=== PATIENT | male | born 1985 | race American Indian/Alaskan Native ===

== ENCOUNTER 2016-12-01 18:06 | Emergency (ER) | payer SELFPAY ==
[2016-12-01 18:33] VITALS: RESP 18
[2016-12-01 18:47] VITALS: BMI 15.6
--- NOTE | 2016-12-01 18:54 | ED PDOC ---
Arrival/HPI - General Chief Complaint: Alcohol Ingestion Time Seen by Provider: 12/01/16 18:20 Historian: Patient - History of Present Illness Narrative History of Present Illness (Text): 12/01/16 18:50 A 31 year old male was brought into the emergency department by EMS for alcohol intoxication. Patient admits to drinking alcohol today. Patient has no physical complaints and states he just wants something to eat. Patient denies any trauma , fever, nausea, vomiting, diarrhea, abdominal pain, chest pain, shortness of breath, suicidal ideation, homicidal ideation or any other complaints. Time/Duration: Prior to Arrival Symptom Course: Unchanged Quality: Other Context: Other Past Medical History - Provider Review Nursing Documentation Reviewed: Yes - Infectious Disease Hx of Infectious Diseases: None - Cardiac Hx Cardiac Disorders: No Hx Hypertension: No - Pulmonary Hx Respiratory Disorders: No Hx Tuberculosis: No - Neurological HX Cerebrovascular Accident: No Hx Seizures: No - HEENT Hx HEENT Disorder: No - Renal Hx Renal Disorder: No - Endocrine/Metabolic Hx Endocrine Disorders: No - Hematological/Oncological Hx Blood Disorders: No Hx Cancer: No - Integumentary Hx Dermatological Disorder: No - Musculoskeletal/Rheumatological Hx Musculoskeletal Disorders: No - Gastrointestinal Hx Gastrointestinal Disorders: No - Genitourinary/Gynecological Hx Genitourinary Disorders: No Hx Sexually Transmitted Diseases: No - Psychiatric Hx Psychophysiologic Disorder: No Hx Anxiety: No Hx Substance Use: No - Anesthesia Hx Anesthesia: No Hx Anesthesia Reactions: No Hx Malignant Hyperthermia: No Family/Social History - Physician Review Nursing Documentation Reviewed: Yes Family/Social History: No Known Family HX Smoking Status: Heavy Smoker > 10 Cigarettes Daily Hx Alcohol Use: Yes Frequency of alcohol use: Daily Hx Substance Use: No Allergies/Home Meds Allergies/Adverse Reactions: Allergies No Known Allergies Allergy (Verified 12/01/16 18:15) Home Medications: Home Meds Medication Instructions Recorded Confirmed No Known Home Med 11/15/16 12/01/16 Review of Systems - Review of Systems Systems not reviewed;Unavailable: Intoxicated Physical Exam - Physical Exam Narrative Physical Exam (Text): Constitutional: No acute distress. Head: Normocephalic. Atraumatic. Eyes: PERRL. ENT: Moist mucous membranes. Neck: Supple. Cardiovascular: Regular rate. Chest: No tenderness. Respiratory: Clear to auscultation bilaterally. No airway compromise, breathing without difficulty. GI: Soft. Nontender. Nondistended. Back: No CVA tenderness. Musculoskeletal: No tenderness or swelling of extremities. Skin: No rash. Neurologic: Alert, no focal deficit. Steady gait. No suicidal/homicidal ideation. Vital Signs Reviewed: Yes Vital Signs Temp Pulse Resp BP Pulse Ox 12/01/16 18:32 97.9 F 89 18 133/75 100 Temperature: Afebrile Blood Pressure: Normal Pulse: Regular Respiratory Rate: Normal Appearance: Positive for: Well-Appearing, Non-Toxic, Comfortable Pain Distress: None Mental Status: No: Confused, Agitated, Lethargic Medical Decision Making ED Course and Treatment: 12/01/16 18:50 Impression: A 31 year old male brought in for alcohol intoxication. Differential Diagnosis included but are not limited to: Alcohol intoxication Progress Notes: Patient with stable gait and wishes to go home. - Scribe Statement The provider has reviewed the documentation as recorded by the Radhaibjm Lopez Provider Scribe Attestation: All medical record entries made by the Scribe were at my direction and personally dictated by me. I have reviewed the chart and agree that the record accurately reflects my personal performance of the history, physical exam, medical decision making, and the department course for this patient. I have also personally directed, reviewed, and agree with the discharge instructions and disposition. Disposition/Present on Arrival - Present on Arrival Any Indicators Present on Arrival: No History of DVT/PE: No History of Uncontrolled Diabetes: No Urinary Catheter: No History of Decub. Ulcer: No History Surgical Site Infection Following: None - Disposition Have Diagnosis and Disposition been Completed?: Yes Diagnosis: Alcohol intoxication Disposition: HOME/ ROUTINE Disposition Time: 19:04 Patient Plan: Discharge Condition: STABLE Discharge Instructions (ExitCare): Alcohol Intoxication (ED)
--- NOTE | 2016-12-01 23:21 | ED PDOC ---
Physical Exam Vital Signs Reviewed: Yes Vital Signs Temp Pulse Resp BP Pulse Ox 12/01/16 21:29 106 H 18 149/83 99 12/01/16 19:25 106 H 18 149/87 99 12/01/16 18:32 97.9 F 89 18 133/75 100 Temperature: Afebrile Blood Pressure: Normal Pulse: Regular Respiratory Rate: Normal Appearance: Positive for: Well-Appearing, Non-Toxic, Comfortable Pain Distress: None Mental Status: Positive for: Alert and Oriented X 3 Medical Decision Making ED Course and Treatment: 12/01/16 23:00 Pt brought in by Franci THAYER for alcohol intoxication. Disposition/Present on Arrival - Present on Arrival Any Indicators Present on Arrival: No History of DVT/PE: No History of Uncontrolled Diabetes: No Urinary Catheter: No History of Decub. Ulcer: No History Surgical Site Infection Following: None - Disposition Diagnosis: Alcohol intoxication Disposition: HOME/ ROUTINE Patient Problems: Current Active Problems Problem Status Diagnosed Alcohol intoxication Acute Condition: STABLE Discharge Instructions (ExitCare): Alcohol Intoxication (ED) Referrals: Kayce Ordaz, [Primary Care Provider] - Follow up with primary
[2016-12-02 04:19] VITALS: PULSE 97
[2016-12-02 06:31] VITALS: BP 125/76; TEMP 98.8; O2SAT 99
== END 2016-12-02 07:00 | disposition home or self-care (01) ==
LOC: ED 18:06
DX: F10.129 Alcohol abuse with intoxication, unspecified (principal); Y90.9 Presence of alcohol in blood, level not specified

== ENCOUNTER 2016-12-08 23:11 | Emergency (ER) | payer SELFPAY ==
[2016-12-08 23:45] VITALS: BP 140/82; PULSE 88; RESP 20; TEMP 98; O2SAT 97; BMI 25.0
--- NOTE | 2016-12-09 00:27 | ED PDOC ---
Arrival/HPI - General Chief Complaint: Medical Clearance Time Seen by Provider: 12/09/16 00:24 Historian: Patient, EMS - History of Present Illness Narrative History of Present Illness (Text): 12/09/16 00:25 31 y/o male, no significant pmh, psychiatric history including alcohol abuse, nkda, biba for Past Medical History - Infectious Disease Hx of Infectious Diseases: None - Cardiac Hx Cardiac Disorders: No Hx Hypertension: No - Pulmonary Hx Respiratory Disorders: No Hx Tuberculosis: No - Neurological HX Cerebrovascular Accident: No Hx Seizures: No - HEENT Hx HEENT Disorder: No - Renal Hx Renal Disorder: No - Endocrine/Metabolic Hx Endocrine Disorders: No - Hematological/Oncological Hx Blood Disorders: No Hx Cancer: No - Integumentary Hx Dermatological Disorder: No - Musculoskeletal/Rheumatological Hx Musculoskeletal Disorders: No - Gastrointestinal Hx Gastrointestinal Disorders: No - Genitourinary/Gynecological Hx Genitourinary Disorders: No Hx Sexually Transmitted Diseases: No - Psychiatric Hx Psychophysiologic Disorder: No Hx Anxiety: No Hx Substance Use: No - Anesthesia Hx Anesthesia: No Hx Anesthesia Reactions: No Hx Malignant Hyperthermia: No Family/Social History Smoking Status: Heavy Smoker > 10 Cigarettes Daily Hx Alcohol Use: Yes Frequency of alcohol use: Daily Hx Substance Use: No Allergies/Home Meds Allergies/Adverse Reactions: Allergies No Known Allergies Allergy (Verified 12/08/16 23:44) Home Medications: Home Meds Medication Instructions Recorded Confirmed No Known Home Med 11/15/16 12/01/16 Physical Exam Vital Signs Temp Pulse Resp BP Pulse Ox 12/08/16 23:44 98.0 F 88 20 140/82 97 Medical Decision Making ED Course and Treatment: 12/09/16 00:27 -FS -Observe until sober and reassess ED OBSERVATION Date of observation admission: 12/09/16 Time of observation admission: 00:26 - Observation admission statement Patient is being placed in observation because:: alcohol intoxication - Goals of Observation Goals of observation are:: sober and reassess Disposition/Present on Arrival - Present on Arrival Any Indicators Present on Arrival: No History of DVT/PE: No History of Uncontrolled Diabetes: No Urinary Catheter: No History of Decub. Ulcer: No History Surgical Site Infection Following: None - Disposition Have Diagnosis and Disposition been Completed?: Yes
== END 2016-12-09 01:52 | disposition left against medical advice (07) ==
LOC: ED 23:11
DX: Z02.89 Encounter for other administrative examinations (principal); Z00.00 Encounter for general adult medical examination without abnormal findings

== ENCOUNTER 2016-12-11 20:24 | Observation (INO) | payer SELFPAY ==
[2016-12-11 20:25] VITALS: BMI 25.0
--- NOTE | 2016-12-11 20:30 | ED PDOC ---
Arrival/HPI - General Historian: Patient - History of Present Illness Time/Duration: Prior to Arrival Symptom Onset: Other (chronic ) Context: Street, Pedestrian <Karmen Cardona - Last Filed: 12/12/16 01:11> <Yovani Bashir - Last Filed: 12/12/16 06:40> - General Time Seen by Provider: 12/11/16 20:29 - History of Present Illness Narrative History of Present Illness (Text): 12/11/16 20:29 This 31 yo male with pmh alcohol abuse, is brought to this ED by BLS for medical evaluation. Patient was found walking in front of store. Police was called, which the called ambulance. Patient admits drinking ukn amount of alcohol. Patient denies fall, sob, cough, abdominal pain, n/v/d, TALAVERA, or CP. ( Karmen Cardona) Past Medical History - Provider Review Nursing Documentation Reviewed: Yes - Infectious Disease Hx of Infectious Diseases: None - Cardiac Hx Cardiac Disorders: No Hx Hypertension: No - Pulmonary Hx Respiratory Disorders: No Hx Tuberculosis: No - Neurological HX Cerebrovascular Accident: No Hx Seizures: No - HEENT Hx HEENT Disorder: No - Renal Hx Renal Disorder: No - Endocrine/Metabolic Hx Endocrine Disorders: No - Hematological/Oncological Hx Blood Disorders: No Hx Cancer: No - Integumentary Hx Dermatological Disorder: No - Musculoskeletal/Rheumatological Hx Musculoskeletal Disorders: No - Gastrointestinal Hx Gastrointestinal Disorders: No - Genitourinary/Gynecological Hx Genitourinary Disorders: No Hx Sexually Transmitted Diseases: No - Psychiatric Hx Psychophysiologic Disorder: No Hx Anxiety: No Hx Substance Use: No - Anesthesia Hx Anesthesia: No Hx Anesthesia Reactions: No Hx Malignant Hyperthermia: No <Karmen Cardona - Last Filed: 12/12/16 01:11> Family/Social History - Physician Review Nursing Documentation Reviewed: Yes Family/Social History: No Known Family HX Smoking Status: Heavy Smoker > 10 Cigarettes Daily Hx Alcohol Use: Yes Hx Substance Use: No <Karmen Cardona - Last Filed: 12/12/16 01:11> Allergies/Home Meds <Karmen Cardona - Last Filed: 12/12/16 01:11> <Yovani Bashir - Last Filed: 12/12/16 06:40> Allergies/Adverse Reactions: Allergies No Known Allergies Allergy (Verified 12/08/16 23:44) Home Medications: Home Meds Medication Instructions Recorded Confirmed No Known Home Med 11/15/16 12/01/16 Review of Systems - Review of Systems Constitutional: Normal. absent: Fatigue, Weight Change, Fevers, Night Sweats Eyes: Normal ENT: Normal Respiratory: Normal. absent: SOB, Cough Cardiovascular: Normal Gastrointestinal: Normal. absent: Abdominal Pain, Nausea, Vomiting Genitourinary Male: Normal Musculoskeletal: Normal Skin: Normal Neurological: Normal Endocrine: Normal Hemo/Lymphatic: Normal Psychiatric: Other (See HPI) <Karmen Cardona P - Last Filed: 12/12/16 01:11> Physical Exam Temperature: Afebrile Blood Pressure: Normal Pulse: Tachycardic Respiratory Rate: Normal Appearance: Positive for: Well-Appearing, Non-Toxic, Comfortable, Unkept Pain Distress: None - Systems Exam Head: Present: Atraumatic, Normocephalic, Other (No raccoon sign. No hurtado sign) Pupils: Present: PERRL, Other (no hyphema) Extroacular Muscles: Present: EOMI Conjunctiva: Present: Normal Ears: Present: Normal, NORMAL TM, Normal Canal, Other (No hemotympanum). No: Erythema, TM Bulging, Fluid, TM Perf Mouth: Present: Moist Mucous Membranes Neck: Present: Normal Range of Motion. No: Meningeal Signs Respiratory/Chest: Present: Clear to Auscultation, Good Air Exchange. No: Respiratory Distress, Accessory Muscle Use, Wheezes, Retracting, Rhonchi Cardiovascular: Present: Regular Rate and Rhythm, Normal S1, S2. No: Murmurs Abdomen: Present: Normal Bowel Sounds. No: Tenderness, Distention, Peritoneal Signs, Rebound, Guarding Back: Present: Normal Inspection. No: CVA Tenderness Upper Extremity: Present: Normal Inspection. No: Cyanosis, Edema Lower Extremity: Present: Normal Inspection. No: Edema Neurological: Present: GCS=15, CN II-XII Intact, Speech Normal Skin: Present: Warm, Dry, Normal Color. No: Rashes Psychiatric: Present: Alert, Intoxicated <Karmen Cardona P - Last Filed: 12/12/16 01:11> Vital Signs Temp Pulse Resp BP Pulse Ox 12/12/16 06:37 98.3 F 98 H 18 133/84 100 03/26/17 02:02 86 18 116/72 98 12/11/16 23:41 104 H 18 118/87 100 12/11/16 20:32 97.8 F 105 H 18 136/84 100 ED OBSERVATION Date of observation admission: 12/11/16 Time of observation admission: 20:29 <Nya Cardonaim P - Last Filed: 12/12/16 01:11> Discharge: Yes <Yovani Bashir - Last Filed: 12/12/16 06:40> - Observation admission statement Patient is being placed in observation because:: ETOH Intoxication (Cardona,Nahim P) - Goals of Observation Goals of observation are:: Monitor and revaluation (Cardona,Nahim P) - Progress Note Progress Note: 12/12/16 02:00 Pt resting comfortably, no new complaints. 12/12/16 04:00 Pt sleeping currently, in no acute distress. 12/12/16 06:38 Pt. awake alert sober with steady gait. (Yovani Bashir) - PA / EXHIBITS MANAGER / Resident Statement ELIDA has reviewed & agrees with the documentation as recorded. ELIDA has examined the patient and agrees with the treatment plan. <Yovani Bashir - Last Filed: 12/12/16 06:40> Disposition/Present on Arrival - Present on Arrival History of DVT/PE: No History of Uncontrolled Diabetes: No Urinary Catheter: No History Surgical Site Infection Following: None <Nya Cardonaim P - Last Filed: 12/12/16 01:11> - Present on Arrival Any Indicators Present on Arrival: No - Disposition Have Diagnosis and Disposition been Completed?: Yes Disposition Time: 06:40 Patient Plan: Discharge <Yovani Bashir - Last Filed: 12/12/16 06:40> - Disposition Diagnosis: Alcohol intoxication Disposition: HOME/ ROUTINE Patient Problems: Current Active Problems Problem Status Diagnosed Alcohol intoxication Acute Condition: GOOD
[2016-12-11 20:46] VITALS: RESP 18
[2016-12-12 06:38] VITALS: BP 133/84; PULSE 98; TEMP 98.3; O2SAT 100
== END 2016-12-12 06:37 | disposition home or self-care (01) ==
LOC: ED 20:24 → EROBSV 12-12 02:24
PROVIDERS: ADMIT Emergency Medicine; ATTEND Emergency Medicine
DX: F10.129 Alcohol abuse with intoxication, unspecified (principal); Y90.9 Presence of alcohol in blood, level not specified
CPT/HCPCS: 99284; G0378

== ENCOUNTER 2016-12-12 21:44 | Observation (INO) | payer SELFPAY ==
[2016-12-12 21:44] VITALS: BMI 25.0
--- NOTE | 2016-12-12 22:16 | ED PDOC ---
Arrival/HPI - General Chief Complaint: Alcohol Ingestion Time Seen by Provider: 12/12/16 22:05 Historian: Patient - History of Present Illness Narrative History of Present Illness (Text): 12/12/16 22:10 Wili Aguilar is a 31 year old male, whose past medical history includes alcohol abuse, who presents to the ED brought in by EMS for public intoxication tonight. Patient was found inebriated at [employer] by EMS and patient admits to drinking alcohol tonight. Patient denies any fever, chills, chest pain, shortness of breath, nausea, vomiting, diarrhea, urinary symptoms, back pain, neck pain, headache, dizziness, or any other complaints. Time/Duration: Other (tonight) Symptom Onset: Gradual Symptom Course: Unchanged Activities at Onset: Light Context: Other ([employer]) Past Medical History - Provider Review Nursing Documentation Reviewed: Yes - Infectious Disease Hx of Infectious Diseases: None - Cardiac Hx Cardiac Disorders: No Hx Hypertension: No - Pulmonary Hx Respiratory Disorders: No Hx Tuberculosis: No - Neurological HX Cerebrovascular Accident: No Hx Seizures: No - HEENT Hx HEENT Disorder: No - Renal Hx Renal Disorder: No - Endocrine/Metabolic Hx Endocrine Disorders: No - Hematological/Oncological Hx Blood Disorders: No Hx Cancer: No - Integumentary Hx Dermatological Disorder: No - Musculoskeletal/Rheumatological Hx Musculoskeletal Disorders: No - Gastrointestinal Hx Gastrointestinal Disorders: No - Genitourinary/Gynecological Hx Genitourinary Disorders: No Hx Sexually Transmitted Diseases: No - Psychiatric Hx Psychophysiologic Disorder: No Hx Anxiety: No Hx Substance Use: No - Anesthesia Hx Anesthesia: No Hx Anesthesia Reactions: No Hx Malignant Hyperthermia: No Family/Social History - Physician Review Nursing Documentation Reviewed: Yes Family/Social History: No Known Family HX Smoking Status: Heavy Smoker > 10 Cigarettes Daily Hx Alcohol Use: Yes Hx Substance Use: No Allergies/Home Meds Allergies/Adverse Reactions: Allergies No Known Allergies Allergy (Verified 12/08/16 23:44) Home Medications: Home Meds Medication Instructions Recorded Confirmed No Known Home Med 11/15/16 12/01/16 Review of Systems - Physician Review All systems were reviewed & negative as marked: Yes - Review of Systems Constitutional: Normal. absent: Fevers Eyes: Normal ENT: Normal Respiratory: Normal. absent: SOB, Cough Cardiovascular: Normal. absent: Chest Pain Gastrointestinal: Normal. absent: Abdominal Pain, Diarrhea, Nausea, Vomiting Genitourinary Male: Normal. absent: Dysuria, Frequency, Hematuria, Urinary Output Changes Musculoskeletal: Normal. absent: Back Pain, Neck Pain Skin: Normal. absent: Rash Neurological: Normal. absent: Headache, Dizziness Endocrine: Normal Hemo/Lymphatic: Normal Psychiatric: Normal Physical Exam Vital Signs Reviewed: Yes Vital Signs Temp Pulse Resp BP Pulse Ox 12/13/16 02:39 98.8 F 83 16 102/51 L 98 12/12/16 22:04 97.1 F L 87 139/97 H 99 12/12/16 21:58 97.1 F L 87 18 139/97 H 99 Temperature: Afebrile Blood Pressure: Normal Pulse: Regular Respiratory Rate: Normal Appearance: Positive for: Well-Appearing, Non-Toxic, Comfortable Pain Distress: None Mental Status: Positive for: Alert and Oriented X 3 - Systems Exam Head: Present: Atraumatic, Normocephalic Pupils: Present: PERRL Extroacular Muscles: Present: EOMI Conjunctiva: Present: Normal Mouth: Present: Moist Mucous Membranes Neck: Present: Normal Range of Motion Respiratory/Chest: Present: Clear to Auscultation, Good Air Exchange. No: Respiratory Distress, Accessory Muscle Use Cardiovascular: Present: Regular Rate and Rhythm, Normal S1, S2. No: Murmurs Abdomen: Present: Normal Bowel Sounds. No: Tenderness, Distention, Peritoneal Signs Back: Present: Normal Inspection Upper Extremity: Present: Normal Inspection. No: Cyanosis, Edema Lower Extremity: Present: Normal Inspection. No: Edema Neurological: Present: GCS=15, CN II-XII Intact, Speech Normal Skin: Present: Warm, Dry, Normal Color. No: Rashes Psychiatric: Present: Alert, Oriented x 3, Normal Insight, Normal Concentration Medical Decision Making ED Course and Treatment: 12/12/16 22:10 Impression: 31 year old male brought in for public intoxication tonight. Differential Diagnosis include but are not limited to: alcohol intoxication Plan: -- Reassess and disposition Prior Visits: Notes and results from previous visits were reviewed. Pt is well known to Emergency room staff and has been seen on multiple occasions for similar complaint. Pt was d/c earlier today. ED OBSERVATION Discharge: Yes Date of observation admission: 12/12/16 Time of observation admission: 22:10 - Observation admission statement Patient is being placed in observation because:: alcohol intoxication - Goals of Observation Goals of observation are:: pending sobriety, observe for signs of withdrawal - Progress Note Progress Note: 12/12/16 22:10 Pt brought in for public intoxication. Pt is in no acute distress. Will observe until morning pending sobriety 12/13/16 00:10 Pt resting comfortably, no new complaints. 12/13/16 02:08 Pt sleeping, in no acute distress. 12/13/16 04:08 Pt resting comfortably, no new complaints. Stable vital signs. 12/13/16 06:25 Pt awake, alert, and ambulating without difficulty. Pt clinically sober. Pt stable for d/c. - Scribe Statement The provider has reviewed the documentation as recorded by the Cipriano Perdomo Provider Attestation: All medical record entries made by the Cipriano were at my direction and personally dictated by me. I have reviewed the chart and agree that the record accurately reflects my personal performance of the history, physical exam, medical decision making, and the department course for this patient. I have also personally directed, reviewed, and agree with the discharge instructions and disposition. Disposition/Present on Arrival - Present on Arrival Any Indicators Present on Arrival: No History of DVT/PE: No History of Uncontrolled Diabetes: No Urinary Catheter: No History of Decub. Ulcer: No History Surgical Site Infection Following: None - Disposition Have Diagnosis and Disposition been Completed?: Yes Diagnosis: Alcohol intoxication Disposition: HOME/ ROUTINE Disposition Time: 06:25 Patient Plan: Discharge Patient Problems: Current Active Problems Problem Status Diagnosed Alcohol intoxication Acute Condition: STABLE
[2016-12-13 02:40] VITALS: BP 102/51; PULSE 83; RESP 16; TEMP 98.8; O2SAT 98
== END 2016-12-13 06:23 | disposition home or self-care (01) ==
LOC: ED 21:44 → EROBSV 22:10
PROVIDERS: ADMIT Emergency Medicine; ATTEND Emergency Medicine
DX: F10.129 Alcohol abuse with intoxication, unspecified (principal); Y90.9 Presence of alcohol in blood, level not specified
CPT/HCPCS: 99282; G0378

== ENCOUNTER 2016-12-14 19:17 | Emergency (ER) | payer SELFPAY ==
[2016-12-14 19:27] VITALS: BMI 29.0
[2016-12-14 20:16] VITALS: RESP 18; O2SAT 98
--- NOTE | 2016-12-14 22:04 | ED PDOC ---
Arrival/HPI - General Chief Complaint: Alcohol Ingestion Time Seen by Provider: 12/14/16 19:30 Historian: Patient, EMS - History of Present Illness Narrative History of Present Illness (Text): 12/14/16 22:01 Wili Aguilar is a 31 year old male who was brought to emergency department via ambulance for public intoxication. Patient was found in the street intoxicated with an unsteady gait. Denies any suicidal or homicidal ideation. Denies any somatic complaints. Time/Duration: 1-3 hours Symptom Onset: Gradual Severity Level: Mild Activities at Onset: Light Context: Street Past Medical History - Provider Review Nursing Documentation Reviewed: Yes - Infectious Disease Hx of Infectious Diseases: None - Cardiac Hx Cardiac Disorders: No Hx Hypertension: No - Pulmonary Hx Respiratory Disorders: No Hx Tuberculosis: No - Neurological HX Cerebrovascular Accident: No Hx Seizures: No - HEENT Hx HEENT Disorder: No - Renal Hx Renal Disorder: No - Endocrine/Metabolic Hx Endocrine Disorders: No - Hematological/Oncological Hx Blood Disorders: No Hx Cancer: No - Integumentary Hx Dermatological Disorder: No - Musculoskeletal/Rheumatological Hx Musculoskeletal Disorders: No - Gastrointestinal Hx Gastrointestinal Disorders: No - Genitourinary/Gynecological Hx Genitourinary Disorders: No Hx Sexually Transmitted Diseases: No - Psychiatric Hx Psychophysiologic Disorder: No Hx Anxiety: No Hx Substance Use: No - Anesthesia Hx Anesthesia: No Hx Anesthesia Reactions: No Hx Malignant Hyperthermia: No Family/Social History - Physician Review Nursing Documentation Reviewed: Yes Family/Social History: No Known Family HX Smoking Status: Heavy Smoker > 10 Cigarettes Daily Hx Alcohol Use: Yes Hx Substance Use: No Allergies/Home Meds Allergies/Adverse Reactions: Allergies No Known Allergies Allergy (Verified 12/08/16 23:44) Home Medications: Home Meds Medication Instructions Recorded Confirmed No Known Home Med 11/15/16 12/01/16 Review of Systems - Physician Review All systems were reviewed & negative as marked: Yes - Review of Systems Constitutional: Normal. absent: Fatigue, Fevers Respiratory: Normal. absent: SOB Cardiovascular: Normal. absent: Chest Pain Gastrointestinal: Normal Neurological: Normal. absent: Headache, Dizziness Psychiatric: Other (intoxicated). absent: Suicidal Ideation Physical Exam Vital Signs Reviewed: Yes Vital Signs Temp Pulse Resp BP Pulse Ox 12/15/16 06:30 97.8 F 92 H 18 122/78 98 12/15/16 02:54 98.0 F 107 H 18 128/83 98 12/14/16 20:13 98.1 F 94 H 18 144/76 98 Temperature: Afebrile Blood Pressure: Normal Pulse: Regular Respiratory Rate: Normal Appearance: Positive for: Well-Appearing Pain Distress: None Mental Status: Positive for: Alert and Oriented X 3 - Systems Exam Head: Present: Atraumatic, Normocephalic Pupils: Present: PERRL Extroacular Muscles: Present: EOMI Conjunctiva: Present: Normal Respiratory/Chest: Present: Clear to Auscultation, Good Air Exchange. No: Respiratory Distress, Accessory Muscle Use Cardiovascular: Present: Regular Rate and Rhythm, Normal S1, S2. No: Murmurs Abdomen: Present: Normal Bowel Sounds. No: Tenderness, Distention, Peritoneal Signs Neurological: Present: GCS=15, CN II-XII Intact, Speech Normal Skin: Present: Warm, Dry, Normal Color. No: Rashes Psychiatric: Present: Alert, Oriented x 3, Intoxicated Medical Decision Making ED Course and Treatment: 12/14/16 22:05 Impression: A 31 year old male who presents to the emergency department for public intoxication. Plan: -- EKG -- Labs -- Drug screen -- Alcohol level -- Chest X-ray -- Urinalysis -- Reassess and disposition Progress Notes: 12/15/16 06:29 EKG reviewed by me: Sinus Tachycardia @ 102 bpm. Normal [place]. Normal interval. pt evaluated by pes for dc 12/18/16 19:14 - Lab Interpretations Lab Results: 12/15/16 01:18 12/15/16 01:18 Lab Results 12/15/16 01:18: WBC 6.3, RBC 4.67, Hgb 14.3, Hct 41.7 L, MCV 89.3, MCH 30.6, MCHC 34.3, RDW 14.5, Plt Count 384, MPV 10.5, Gran % 57.2, Lymph % (Auto) 30.4, Yates % (Auto) 9.4 H, Eos % (Auto) 2.7, Baso % (Auto) 0.3, Gran # 3.60, Lymph # 1.9, Yates # 0.6, Eos # 0.2, Baso # 0.02, Sodium 140, Potassium 4.1, Chloride 101 , Carbon Dioxide 24, Anion Gap 19, BUN 15, Creatinine 0.9, Est GFR ( Amer ) > 60, Est GFR (Non-Af Amer) > 60, Random Glucose 128 H, Calcium 8.9, Total Bilirubin 0.5, AST 56, ALT 31, Alkaline Phosphatase 78, Total Protein 7.2, Albumin 4.0, Globulin 3.1, Albumin/Globulin Ratio 1.3, Salicylates < 1 L, Acetaminophen < 10.0 L, Alcohol, Quantitative 51 H - RAD Interpretation Radiology Orders: 12/15/16 00:31 CHEST PORTABLE [RAD] Stat - Scribe Statement The provider has reviewed the documentation as recorded by the Radhaibmj Brownlee Provider Attestation: All medical record entries made by the Scribe were at my direction and personally dictated by me. I have reviewed the chart and agree that the record accurately reflects my personal performance of the history, physical exam, medical decision making, and the department course for this patient. I have also personally directed, reviewed, and agree with the discharge instructions and disposition. Disposition/Present on Arrival - Present on Arrival Any Indicators Present on Arrival: No History of DVT/PE: No History of Uncontrolled Diabetes: No Urinary Catheter: No History of Decub. Ulcer: No History Surgical Site Infection Following: None - Disposition Have Diagnosis and Disposition been Completed?: Yes Diagnosis: Alcohol intoxication Disposition: HOME/ ROUTINE Disposition Time: 05:56 Condition: GOOD Discharge Instructions (ExitCare): Abuse of Alcohol (ED) Referrals: PCP,NO [Primary Care Provider] - Follow up with primary
[2016-12-15 01:34] LABS: ADD MANUAL DIFF? NO
[2016-12-15 01:40] LABS: BASO # 0.02 K/mm3 (0.0-2.0); BASO % 0.3 % (0.0-3.0); EOS # 0.2 (0.0-0.7); EOS % 2.7 % (1.5-5.0); GRAN % 57.2 % (50.0-68.0); HEMATOCRIT 41.7 % (42.0-52.0); LYMPH # 1.9 (1.2-3.4); LYMPH % 30.4 % (22.0-35.0); MEAN CELL VOLUME 89.3 fL (80.0-105.0); MEAN CORPUSCULAR HEMOGLOBIN 30.6 pg (25.0-35.0); MEAN CORPUSCULAR HGB CONC 34.3 g/dl (31.0-37.0); MEAN PLATELET VOLUME 10.5 fl (7.0-11.0); MONO # 0.6 (0.1-0.6); MONO % 9.4 % (1.0-6.0); PLATELET COUNT 384 10^3/uL (120.0-450.0); RED CELL DISTRIBUTION WIDTH 14.5 % (11.5-14.5); WHITE BLOOD COUNT 6.3 10^3/ul (4.5-11.0)
[2016-12-15 01:46] LABS: ALB/GLOB RATIO 1.3 (1.1-1.8); ALKALINE PHOSPHATASE 78 U/L (38-133); ALT/SGPT 31 U/L (7-56); AST/SGOT 56 U/L (15-59); BILIRUBIN,TOTAL 0.5 mg/dL (0.2-1.3); BLOOD UREA NITROGEN 15 mg/dL (7-21); CALCIUM 8.9 mg/dL (8.4-10.5); CARBON DIOXIDE 24 mmol/L (21-33); CHLORIDE 101 mmol/L (95-110); GFR AFRICAN-AMERICAN > 60; GLUCOSE,RANDOM 128 mg/dL (70-110); POTASSIUM 4.1 mmol/L (3.6-5.0); SODIUM 140 mmol/L (132-148); TOTAL PROTEIN 7.2 g/dL (5.8-8.3)
[2016-12-15 06:42] VITALS: BP 122/78; PULSE 92; TEMP 97.8
--- NOTE | 2016-12-15 07:24 | RAD ---
HISTORY: pes COMPARISON: 11/11/2016 1:30 p.m. FINDINGS: LUNGS: No active pulmonary disease. PLEURA: No significant pleural effusion identified, no pneumothorax apparent. CARDIOVASCULAR: Normal. OSSEOUS STRUCTURES: No significant abnormalities. VISUALIZED UPPER ABDOMEN: Normal. OTHER FINDINGS: None. IMPRESSION: No active disease. No interval pathology appreciated
--- NOTE | 2016-12-15 09:01 | CARD ---
APPROVED REPORT EKG Measurement Heart [id number] <Conclusion> Sinus tachycardia Otherwise normal ECG
== END 2016-12-15 06:44 | disposition home or self-care (01) ==
LOC: ED 19:17
DX: F10.129 Alcohol abuse with intoxication, unspecified (principal); Y90.2 Blood alcohol level of 40-59 mg/100 ml
CPT/HCPCS: 71010; 80053; 85025; 93005; 99284; G0480

== ENCOUNTER 2016-12-16 16:41 | Emergency (ER) | payer SELFPAY ==
[2016-12-16 16:59] VITALS: BMI 25.0
--- NOTE | 2016-12-16 17:01 | ED PDOC ---
Arrival/HPI - General Chief Complaint: Alcohol Ingestion Time Seen by Provider: 12/16/16 16:54 Historian: Patient - History of Present Illness Narrative History of Present Illness (Text): 12/16/16 17:00 A 31 year old male, whose past medical history includes alcohol abuse, is brought into the emergency department via EMS for public intoxication. Patient has no complaints at this time. He denies any trauma. Patient does admit to drinking alcohol today. He has no somatic complaints. Past Medical History - Provider Review Nursing Documentation Reviewed: Yes - Infectious Disease Hx of Infectious Diseases: None - Cardiac Hx Cardiac Disorders: No Hx Hypertension: No - Pulmonary Hx Respiratory Disorders: No Hx Tuberculosis: No - Neurological HX Cerebrovascular Accident: No Hx Seizures: No - HEENT Hx HEENT Disorder: No - Renal Hx Renal Disorder: No - Endocrine/Metabolic Hx Endocrine Disorders: No - Hematological/Oncological Hx Blood Disorders: No Hx Cancer: No - Integumentary Hx Dermatological Disorder: No - Musculoskeletal/Rheumatological Hx Musculoskeletal Disorders: No - Gastrointestinal Hx Gastrointestinal Disorders: No - Genitourinary/Gynecological Hx Genitourinary Disorders: No Hx Sexually Transmitted Diseases: No - Psychiatric Hx Psychophysiologic Disorder: No Hx Anxiety: No Hx Substance Use: No - Anesthesia Hx Anesthesia: No Hx Anesthesia Reactions: No Hx Malignant Hyperthermia: No Family/Social History - Physician Review Nursing Documentation Reviewed: Yes Family/Social History: No Known Family HX Smoking Status: Heavy Smoker > 10 Cigarettes Daily Hx Alcohol Use: Yes Frequency of alcohol use: Daily Hx Substance Use: No Allergies/Home Meds Allergies/Adverse Reactions: Allergies No Known Allergies Allergy (Verified 12/08/16 23:44) Home Medications: Home Meds Medication Instructions Recorded Confirmed No Known Home Med 11/15/16 12/01/16 Review of Systems - Physician Review All systems were reviewed & negative as marked: Yes - Review of Systems Constitutional: Normal Eyes: Normal ENT: Normal Respiratory: Normal Cardiovascular: Normal Gastrointestinal: Normal Genitourinary Male: Normal Musculoskeletal: Normal Skin: Normal Neurological: Normal Endocrine: Normal Hemo/Lymphatic: Normal Psychiatric: Other (intoxicated) Physical Exam Vital Signs Reviewed: Yes Vital Signs Temp Pulse Resp BP Pulse Ox 12/16/16 19:09 108 H 18 103/65 98 12/16/16 17:02 98.8 F 80 18 127/78 100 12/16/16 16:51 98.7 F 68 18 122/75 99 12/16/16 16:48 98.1 F 83 17 115/85 98 Temperature: Afebrile Blood Pressure: Normal Pulse: Regular Respiratory Rate: Normal Appearance: Positive for: Comfortable, Other (disheveled; unkept) Pain Distress: None Mental Status: Positive for: Alert and Oriented X 3 Finger Stick Blood Glucose: 87 - Systems Exam Head: Present: Atraumatic, Normocephalic Pupils: Present: PERRL Extroacular Muscles: Present: EOMI Conjunctiva: Present: Normal Mouth: Present: Moist Mucous Membranes Neck: Present: Normal Range of Motion Respiratory/Chest: Present: Clear to Auscultation, Good Air Exchange. No: Respiratory Distress, Accessory Muscle Use Cardiovascular: Present: Regular Rate and Rhythm, Normal S1, S2. No: Murmurs Abdomen: Present: Normal Bowel Sounds. No: Tenderness, Distention, Peritoneal Signs Back: Present: Normal Inspection Upper Extremity: Present: Normal Inspection. No: Cyanosis, Edema Lower Extremity: Present: Normal Inspection. No: Edema Neurological: Present: GCS=15, CN II-XII Intact, Speech Normal Skin: Present: Warm, Dry, Normal Color. No: Rashes Psychiatric: Present: Alert, Oriented x 3, Normal Insight, Normal Concentration Medical Decision Making ED Course and Treatment: 12/16/16 17:00 Impression: A 31 year old male brought in for public intoxication. Differential Diagnosis include but are not limited to: alcohol abuse Plan: -- Finger stick -- sobriety -- Reassess and disposition Prior Visits: Notes and results from previous visits were reviewed. The patient is well know the the emergency department staff. Patient presents multiple times for similar complaints. Progress Notes: Finger stick is 87. 12/16/16 18:58 Patient is resting comfortably. Will continue to monitor for sobriety 12/16/16 21:45 Patient resting comfortably 12/16/16 23:[address] George to continue to monitor & reevaluate when sober ED OBSERVATION Date of observation admission: 12/16/16 Time of observation admission: 17:00 - Observation admission statement Patient is being placed in observation because:: alcohol intoxication - Goals of Observation Goals of observation are:: monitor for sobriety - Scribe Statement The provider has reviewed the documentation as recorded by the Scribe Chantell Bremeo Provider Scribe Attestation: All medical record entries made by the Scribe were at my direction and personally dictated by me. I have reviewed the chart and agree that the record accurately reflects my personal performance of the history, physical exam, medical decision making, and the department course for this patient. I have also personally directed, reviewed, and agree with the discharge instructions and disposition. Disposition/Present on Arrival - Present on Arrival Any Indicators Present on Arrival: No History of DVT/PE: No History of Uncontrolled Diabetes: No Urinary Catheter: No History of Decub. Ulcer: No History Surgical Site Infection Following: None - Disposition Have Diagnosis and Disposition been Completed?: Yes Diagnosis: Alcohol intoxication Disposition Time: 17:00 Patient Problems: Current Active Problems Problem Status Diagnosed Alcohol intoxication Acute Condition: FAIR Referrals: PCP,NO [Primary Care Provider] - Follow up with primary
[2016-12-16 17:04] VITALS: TEMP 98.8
--- NOTE | 2016-12-16 23:06 | ED PDOC ---
Physical Exam Vital Signs Reviewed: Yes Vital Signs Temp Pulse Resp BP Pulse Ox 12/16/16 21:55 108 H 18 107/57 L 96 12/16/16 19:09 108 H 18 103/65 98 12/16/16 17:02 98.8 F 80 18 127/78 100 12/16/16 16:51 98.7 F 68 18 122/75 99 12/16/16 16:48 98.1 F 83 17 115/85 98 Temperature: Afebrile Blood Pressure: Normal Pulse: Regular Respiratory Rate: Normal Appearance: Positive for: Well-Appearing, Non-Toxic, Comfortable Pain Distress: None Finger Stick Blood Glucose: 87 Medical Decision Making ED Course and Treatment: 12/16/16 23:04 Patient signed out to me by . Patient was brought in for intoxication. Denies suicidal or homicidal ideations. Denies somatic complaints. Awaiting sobriety. 12/17/16 04:10 Patient awake, alert, and with steady gait. - Scribe Statement The provider has reviewed the documentation as recorded by the Cipriano Brownlee Provider Attestation: All medical record entries made by the Radhaibmj were at my direction and personally dictated by me. I have reviewed the chart and agree that the record accurately reflects my personal performance of the history, physical exam, medical decision making, and the department course for this patient. I have also personally directed, reviewed, and agree with the discharge instructions and disposition. Disposition/Present on Arrival - Present on Arrival Any Indicators Present on Arrival: No History of DVT/PE: No History of Uncontrolled Diabetes: No Urinary Catheter: No History of Decub. Ulcer: No History Surgical Site Infection Following: None - Disposition Have Diagnosis and Disposition been Completed?: Yes Diagnosis: Alcohol intoxication Disposition: HOME/ ROUTINE Disposition Time: 04:10 Condition: STABLE Discharge Instructions (ExitCare): Alcohol Intoxication (DC) Referrals: PCP,NO [Primary Care Provider] - Follow up with primary
[2016-12-17 03:32] VITALS: BP 124/69; PULSE 90; RESP 18; O2SAT 99
== END 2016-12-17 04:24 | disposition home or self-care (01) ==
LOC: ED 16:41
DX: F10.129 Alcohol abuse with intoxication, unspecified (principal)

== ENCOUNTER 2016-12-19 00:19 | Observation (INO) | payer SELFPAY ==
[2016-12-19 00:20] VITALS: BMI 29.0
[2016-12-19 00:55] VITALS: TEMP 97.7; O2SAT 97
--- NOTE | 2016-12-19 01:19 | ED PDOC ---
Arrival/HPI - General Chief Complaint: Medical Clearance Time Seen by Provider: 12/19/16 00:57 Historian: Patient - History of Present Illness Narrative History of Present Illness (Text): 12/19/16 01:16 Wili Aguilar is a 31 year old male, whose past medical history includes alcohol abuse, who presents to the emergency department for homelessness. Patient is requesting for a place to stay tonight. Patient denies any fever, chills, chest pain, shortness of breath, nausea, vomiting, diarrhea, urinary symptoms, back pain, neck pain, headache, dizziness, or any other complaints. Time/Duration: Other (tonight) Symptom Onset: Gradual Symptom Course: Unchanged Activities at Onset: Rest, Light Context: Street Past Medical History - Provider Review Nursing Documentation Reviewed: Yes - Infectious Disease Hx of Infectious Diseases: None - Cardiac Hx Cardiac Disorders: No Hx Hypertension: No - Pulmonary Hx Respiratory Disorders: No Hx Tuberculosis: No - Neurological HX Cerebrovascular Accident: No Hx Seizures: No - HEENT Hx HEENT Disorder: No - Renal Hx Renal Disorder: No - Endocrine/Metabolic Hx Endocrine Disorders: No - Hematological/Oncological Hx Blood Disorders: No Hx Cancer: No - Integumentary Hx Dermatological Disorder: No - Musculoskeletal/Rheumatological Hx Musculoskeletal Disorders: No - Gastrointestinal Hx Gastrointestinal Disorders: No - Genitourinary/Gynecological Hx Genitourinary Disorders: No Hx Sexually Transmitted Diseases: No - Psychiatric Hx Psychophysiologic Disorder: No Hx Anxiety: No Hx Substance Use: No - Anesthesia Hx Anesthesia: No Hx Anesthesia Reactions: No Hx Malignant Hyperthermia: No Family/Social History - Physician Review Nursing Documentation Reviewed: Yes Family/Social History: No Known Family HX Smoking Status: Heavy Smoker > 10 Cigarettes Daily Hx Alcohol Use: Yes Hx Substance Use: No Allergies/Home Meds Allergies/Adverse Reactions: Allergies No Known Allergies Allergy (Verified 12/19/16 00:51) Home Medications: Home Meds Medication Instructions Recorded Confirmed No Known Home Med 11/15/16 12/19/16 Review of Systems - Physician Review All systems were reviewed & negative as marked: Yes - Review of Systems Constitutional: Normal. absent: Fevers Eyes: Normal ENT: Normal Respiratory: Normal. absent: SOB, Cough Cardiovascular: Normal. absent: Chest Pain Gastrointestinal: Normal. absent: Abdominal Pain, Diarrhea, Nausea, Vomiting Genitourinary Male: Normal. absent: Dysuria, Frequency, Hematuria, Urinary Output Changes Musculoskeletal: Normal. absent: Back Pain, Neck Pain Skin: Normal. absent: Rash Neurological: Normal. absent: Headache, Dizziness Endocrine: Normal Hemo/Lymphatic: Normal Psychiatric: Normal Physical Exam Vital Signs Reviewed: Yes Vital Signs Temp Pulse Resp BP Pulse Ox 12/19/16 04:00 77 16 133/70 97 12/19/16 02:20 77 16 133/70 97 12/19/16 00:52 97.7 F 94 H 17 133/69 97 12/19/16 00:20 82 16 144/75 99 Temperature: Afebrile Blood Pressure: Normal Pulse: Regular Respiratory Rate: Normal Appearance: Positive for: Well-Appearing, Non-Toxic, Comfortable Pain Distress: None Mental Status: Positive for: Alert and Oriented X 3 - Systems Exam Head: Present: Atraumatic, Normocephalic Pupils: Present: PERRL Extroacular Muscles: Present: EOMI Conjunctiva: Present: Normal Mouth: Present: Moist Mucous Membranes Neck: Present: Normal Range of Motion Respiratory/Chest: Present: Clear to Auscultation, Good Air Exchange. No: Respiratory Distress, Accessory Muscle Use Cardiovascular: Present: Regular Rate and Rhythm, Normal S1, S2. No: Murmurs Abdomen: Present: Normal Bowel Sounds. No: Tenderness, Distention, Peritoneal Signs Back: Present: Normal Inspection Upper Extremity: Present: Normal Inspection. No: Cyanosis, Edema Lower Extremity: Present: Normal Inspection. No: Edema Neurological: Present: GCS=15, CN II-XII Intact, Speech Normal Skin: Present: Warm, Dry, Normal Color. No: Rashes Psychiatric: Present: Alert, Oriented x 3, Normal Insight, Normal Concentration Medical Decision Making ED Course and Treatment: 12/19/16 01:16 Impression: 31 year old male requesting a place to stay for tonight. Plan: -- Reassess and disposition ED OBSERVATION Discharge: Yes Date of observation admission: 12/19/16 Time of observation admission: 01:00 - Observation admission statement Patient is being placed in observation because:: homelessness - Progress Note Progress Note: 12/19/16 01:00 Pt sleeping currently, in no acute distress. 12/19/16 03:00 Pt resting comfortably, no new complaints. 12/19/16 05:00 Pt sleeping currently, in no acute distress. 12/19/16 05:30 RN reports pt eloped from Emergency department. - Scribe Statement The provider has reviewed the documentation as recorded by the Cipriano Perdomo Provider Attestation: All medical record entries made by the Cipriano were at my direction and personally dictated by me. I have reviewed the chart and agree that the record accurately reflects my personal performance of the history, physical exam, medical decision making, and the department course for this patient. I have also personally directed, reviewed, and agree with the discharge instructions and disposition. Disposition/Present on Arrival - Present on Arrival Any Indicators Present on Arrival: No History of DVT/PE: No History of Uncontrolled Diabetes: No Urinary Catheter: No History of Decub. Ulcer: No History Surgical Site Infection Following: None - Disposition Have Diagnosis and Disposition been Completed?: Yes Diagnosis: Alcohol intoxication Disposition: ELOPEMENT - ER ONLY Disposition Time: 05:30 Condition: UNKNOWN
[2016-12-19 05:36] VITALS: BP 133/70; PULSE 77; RESP 16
== END 2016-12-19 06:58 | disposition home or self-care (01) ==
LOC: ED 00:19 → EROBSV 01:00
PROVIDERS: ADMIT Emergency Medicine; ATTEND Emergency Medicine
DX: F10.129 Alcohol abuse with intoxication, unspecified (principal); Z59.0 Homelessness
CPT/HCPCS: 99282; G0378

== ENCOUNTER 2016-12-23 01:45 | Observation (INO) | payer SELFPAY ==
[2016-12-23 01:45] VITALS: BMI 29.0
--- NOTE | 2016-12-23 04:45 | ED PDOC ---
Arrival/HPI - General Chief Complaint: Alcohol Ingestion Time Seen by Provider: 12/23/16 04:32 Historian: Patient, EMS - History of Present Illness Narrative History of Present Illness (Text): 12/23/16 04:47 Wili Aguilar is a 31 year old male, whose past medical history includes alcohol abuse, who presents for alcohol intoxication. Patient also reports he is homeless and requesting a place to stay for the night. Patient denies any fever, chills, chest pain, shortness of breath, nausea, vomiting, diarrhea, urinary symptoms, back pain, neck pain, headache, dizziness, or any other complaints. Time/Duration: Other (tonight) Symptom Onset: Gradual Symptom Course: Unchanged Activities at Onset: Rest, Light Context: Street Past Medical History - Provider Review Nursing Documentation Reviewed: Yes - Infectious Disease Hx of Infectious Diseases: None - Cardiac Hx Cardiac Disorders: No Hx Hypertension: No - Pulmonary Hx Respiratory Disorders: No Hx Tuberculosis: No - Neurological HX Cerebrovascular Accident: No Hx Seizures: No - HEENT Hx HEENT Disorder: No - Renal Hx Renal Disorder: No - Endocrine/Metabolic Hx Endocrine Disorders: No - Hematological/Oncological Hx Blood Disorders: No Hx Cancer: No - Integumentary Hx Dermatological Disorder: No - Musculoskeletal/Rheumatological Hx Musculoskeletal Disorders: No - Gastrointestinal Hx Gastrointestinal Disorders: No - Genitourinary/Gynecological Hx Genitourinary Disorders: No Hx Sexually Transmitted Diseases: No - Psychiatric Hx Psychophysiologic Disorder: No Hx Anxiety: No Hx Substance Use: No - Anesthesia Hx Anesthesia: No Hx Anesthesia Reactions: No Hx Malignant Hyperthermia: No Family/Social History - Physician Review Nursing Documentation Reviewed: Yes Family/Social History: No Known Family HX Smoking Status: Heavy Smoker > 10 Cigarettes Daily Hx Alcohol Use: Yes Hx Substance Use: No Allergies/Home Meds Allergies/Adverse Reactions: Allergies No Known Allergies Allergy (Verified 12/19/16 00:51) Home Medications: Home Meds Medication Instructions Recorded Confirmed No Known Home Med 11/15/16 12/19/16 Review of Systems - Physician Review All systems were reviewed & negative as marked: Yes - Review of Systems Constitutional: Normal. absent: Fevers Eyes: Normal ENT: Normal Respiratory: Normal. absent: SOB, Cough Cardiovascular: Normal. absent: Chest Pain, Syncope Gastrointestinal: Normal. absent: Abdominal Pain, Constipation, Diarrhea, Nausea, Vomiting Genitourinary Male: Normal. absent: Dysuria, Frequency, Hematuria, Urinary Output Changes Musculoskeletal: Normal. absent: Back Pain, Neck Pain Skin: Normal. absent: Rash Neurological: Normal. absent: Headache, Dizziness Endocrine: Normal Hemo/Lymphatic: Normal Psychiatric: Normal Physical Exam Vital Signs Reviewed: Yes Vital Signs Temp Pulse Resp BP Pulse Ox 12/23/16 02:55 97.9 F 81 16 118/76 97 Temperature: Afebrile Blood Pressure: Normal Pulse: Regular Respiratory Rate: Normal Appearance: Positive for: Well-Appearing, Non-Toxic, Comfortable Pain Distress: None Mental Status: Positive for: Alert and Oriented X 3 Medical Decision Making ED Course and Treatment: Impression: 31 year old male brought in for alcohol intoxication tonight. Differential Diagnosis include but are not limited to: alcohol intoxication Plan: -- Reassess and disposition Prior Visits: Notes and results from previous visits were reviewed. Pt is well known to Emergency room staff and has been seen on multiple occasions for similar complaints. ED OBSERVATION Discharge: Yes Date of observation admission: 12/23/16 Time of observation admission: 02:00 - Observation admission statement Patient is being placed in observation because:: alcohol abuse - Goals of Observation Goals of observation are:: sobriety - Progress Note Progress Note: 12/23/16 02:00 Pt resting comfortably, in no acute distress. 12/23/16 04:00 Pt resting comfortably, in no acute distress. 12/23/16 06:00 Pt resting comfortably, in no acute distress. 12/23/16 06:16 Pt. awake alert, sober. Disposition/Present on Arrival - Present on Arrival Any Indicators Present on Arrival: No History of DVT/PE: No History of Uncontrolled Diabetes: No Urinary Catheter: No History of Decub. Ulcer: No History Surgical Site Infection Following: None - Disposition Have Diagnosis and Disposition been Completed?: Yes Diagnosis: Alcohol intoxication Disposition: HOME/ ROUTINE Disposition Time: 06:16 Patient Plan: Discharge Condition: GOOD
[2016-12-23 06:25] VITALS: BP 114/72; PULSE 78; RESP 18; TEMP 97.7; O2SAT 98
== END 2016-12-23 05:15 | disposition home or self-care (01) ==
LOC: ED 01:45 → EROBSV 02:00
PROVIDERS: ADMIT Emergency Medicine; ATTEND Emergency Medicine
DX: F10.129 Alcohol abuse with intoxication, unspecified (principal); Y90.9 Presence of alcohol in blood, level not specified
CPT/HCPCS: 99281; G0378

== ENCOUNTER 2016-12-23 13:33 | Emergency (ER) | payer SELFPAY ==
[2016-12-23 13:58] VITALS: BP 121/73; PULSE 76; RESP 18; TEMP 98; O2SAT 99
[2016-12-23 14:06] VITALS: BMI 23.6
--- NOTE | 2016-12-23 14:13 | ED PDOC ---
Arrival/HPI - General Chief Complaint: Alcohol Ingestion Time Seen by Provider: 12/23/16 14:02 Historian: Patient - History of Present Illness Narrative History of Present Illness (Text): 12/23/16 13:47 A 31 year old male, whose past medical history includes alcohol abuse, is brought into the emergency department for alcohol intoxication. Patient states he is homeless and just wants something to eat. Patient denies any alcohol use today. He denies any fever, chest pain, or other complaints at this time. PMD: None Time/Duration: Prior to Arrival Symptom Onset: Sudden Symptom Course: Unchanged Quality: Other Activities at Onset: Rest Context: Street Past Medical History - Provider Review Nursing Documentation Reviewed: Yes - Infectious Disease Hx of Infectious Diseases: None - Cardiac Hx Cardiac Disorders: No Hx Hypertension: No - Pulmonary Hx Respiratory Disorders: No Hx Tuberculosis: No - Neurological HX Cerebrovascular Accident: No Hx Seizures: No - HEENT Hx HEENT Disorder: No - Renal Hx Renal Disorder: No - Endocrine/Metabolic Hx Endocrine Disorders: No - Hematological/Oncological Hx Blood Disorders: No Hx Cancer: No - Integumentary Hx Dermatological Disorder: No - Musculoskeletal/Rheumatological Hx Musculoskeletal Disorders: No - Gastrointestinal Hx Gastrointestinal Disorders: No - Genitourinary/Gynecological Hx Genitourinary Disorders: No Hx Sexually Transmitted Diseases: No - Psychiatric Hx Psychophysiologic Disorder: No Hx Anxiety: No Hx Substance Use: No - Anesthesia Hx Anesthesia: No Hx Anesthesia Reactions: No Hx Malignant Hyperthermia: No Family/Social History - Physician Review Nursing Documentation Reviewed: Yes Family/Social History: Unknown Family HX Smoking Status: Heavy Smoker > 10 Cigarettes Daily Hx Alcohol Use: Yes Hx Substance Use: No Allergies/Home Meds Allergies/Adverse Reactions: Allergies No Known Allergies Allergy (Verified 12/23/16 14:06) Home Medications: Home Meds Medication Instructions Recorded Confirmed No Known Home Med 11/15/16 12/23/16 Review of Systems - Physician Review All systems were reviewed & negative as marked: Yes - Review of Systems Constitutional: absent: Fevers Eyes: Normal ENT: Normal Respiratory: Normal Cardiovascular: Normal Gastrointestinal: Other (hungry) Genitourinary Male: Normal Musculoskeletal: Normal Skin: Normal Neurological: Normal Endocrine: Normal Hemo/Lymphatic: Normal Psychiatric: Normal Physical Exam Vital Signs Reviewed: Yes Vital Signs Temp Pulse Resp BP Pulse Ox 12/23/16 13:57 98.0 F 76 18 121/73 99 Temperature: Afebrile Blood Pressure: Normal Pulse: Regular Respiratory Rate: Normal Appearance: Positive for: Well-Appearing, Non-Toxic, Comfortable Pain Distress: None Mental Status: Positive for: Alert and Oriented X 3 - Systems Exam Head: Present: Atraumatic, Normocephalic Pupils: Present: PERRL Extroacular Muscles: Present: EOMI Conjunctiva: Present: Normal Mouth: Present: Moist Mucous Membranes Neck: Present: Normal Range of Motion Respiratory/Chest: Present: Clear to Auscultation, Good Air Exchange. No: Respiratory Distress, Accessory Muscle Use Cardiovascular: Present: Regular Rate and Rhythm, Normal S1, S2. No: Murmurs Abdomen: Present: Normal Bowel Sounds. No: Tenderness, Distention, Peritoneal Signs Back: Present: Normal Inspection Upper Extremity: Present: Normal Inspection. No: Cyanosis, Edema Lower Extremity: Present: Normal Inspection. No: Edema Neurological: Present: GCS=15, CN II-XII Intact, Speech Normal, Gait Normal Skin: Present: Warm, Dry, Normal Color. No: Rashes Psychiatric: Present: Alert, Oriented x 3, Normal Insight, Normal Concentration Medical Decision Making ED Course and Treatment: 12/23/16 13:47 Impression: A 31 year old homeless male requesting something to eat. Differential Diagnosis include but are not limited to: homeless Plan: -- Will give patient a sandwich and discharge Prior Visits: Notes and results from previous visits were reviewed. The patient is well known to the emergency department staff. Patient reports multiple times for alcohol intoxication and homelessness. Progress Notes: The patient is in no acute distress. Patient has no complaints at this time. Patient gait is steady. Patient is stable for discharge. Patient in agreement with plan to discharged. - Scribe Statement The provider has reviewed the documentation as recorded by the Cipriano Bermeo Provider Scribe Attestation: All medical record entries made by the Cipriano were at my direction and personally dictated by me. I have reviewed the chart and agree that the record accurately reflects my personal performance of the history, physical exam, medical decision making, and the department course for this patient. I have also personally directed, reviewed, and agree with the discharge instructions and disposition. Disposition/Present on Arrival - Present on Arrival Any Indicators Present on Arrival: No History of DVT/PE: No History of Uncontrolled Diabetes: No Urinary Catheter: No History of Decub. Ulcer: No History Surgical Site Infection Following: None - Disposition Have Diagnosis and Disposition been Completed?: Yes Diagnosis: Homeless Disposition: HOME/ ROUTINE Disposition Time: 13:47 Patient Plan: Discharge Condition: IMPROVED Discharge Instructions (ExitCare): Abuse of Alcohol (ED) Additional Instructions: Mr Aguilar, thank you for letting us take care of you today. Your provider was Dr. Mendoza. You were treated for Hungry. The emergency medical care you received today was directed at your acute symptoms. If you were prescribed any medication, please fill it and take as directed. It may take several days for your symptoms to resolve. Return to the Emergency Department if your symptoms worsen, do not improve, or if you have any other problems. Please contact your doctor or call one of the physicians/clinics you have been referred to that are listed on the Patient Visit Information form that is included in your discharge packet. Bring any paperwork you were given at discharge with you along with any medications you are taking to your follow up visit. Our treatment cannot replace ongoing medical care by a primary care provider (PCP) outside of the emergency department. Thank you for allowing the [facility] team to be part of your care today. If you had an X-Ray or CT scan: A Radiologist will review the ED reading if any change in treatment is needed we will contact you. If you had a blood, urine, or wound culture: It will take several days for the results, if any change in treatment is needed we will contact you. If you had an STI test: It will take 48 hours for the results. Please call after 1 week if you have not heard back. Referrals: [facility] at [facility] [Outside] - Follow up with primary
== END 2016-12-23 14:24 | disposition home or self-care (01) ==
LOC: ED 13:33
DX: Z59.0 Homelessness (principal); F10.129 Alcohol abuse with intoxication, unspecified; Y90.9 Presence of alcohol in blood, level not specified

== ENCOUNTER 2016-12-24 11:07 | Observation (INO) | payer SELFPAY ==
[2016-12-24 11:58] VITALS: BMI 25.8
[2016-12-24 12:23] VITALS: RESP 16; TEMP 97.2; O2SAT 98
--- NOTE | 2016-12-24 12:28 | ED PDOC ---
Arrival/HPI - General Chief Complaint: Alcohol Ingestion Time Seen by Provider: 12/24/16 11:47 Historian: Patient, EMS - History of Present Illness Narrative History of Present Illness (Text): 12/24/16 11:47 A 31 year old male, whose past medical history includes alcohol abuse, is brought into the emergency department by EMS for alcohol intoxication. Patient denies any fever, chest pain, or any other complaints. Time/Duration: Prior to Arrival Symptom Course: Unchanged Quality: Other Activities at Onset: Rest Context: Street Past Medical History - Provider Review Nursing Documentation Reviewed: Yes - Infectious Disease Hx of Infectious Diseases: None - Cardiac Hx Cardiac Disorders: No Hx Hypertension: No - Pulmonary Hx Respiratory Disorders: No Hx Tuberculosis: No - Neurological HX Cerebrovascular Accident: No Hx Seizures: No - HEENT Hx HEENT Disorder: No - Renal Hx Renal Disorder: No - Endocrine/Metabolic Hx Endocrine Disorders: No - Hematological/Oncological Hx Blood Disorders: No Hx Cancer: No - Integumentary Hx Dermatological Disorder: No - Musculoskeletal/Rheumatological Hx Musculoskeletal Disorders: No - Gastrointestinal Hx Gastrointestinal Disorders: No - Genitourinary/Gynecological Hx Genitourinary Disorders: No Hx Sexually Transmitted Diseases: No - Psychiatric Hx Psychophysiologic Disorder: No Hx Anxiety: No Hx Substance Use: No - Anesthesia Hx Anesthesia: No Hx Anesthesia Reactions: No Hx Malignant Hyperthermia: No Family/Social History - Physician Review Nursing Documentation Reviewed: Yes Family/Social History: Unknown Family HX Smoking Status: Heavy Smoker > 10 Cigarettes Daily Hx Alcohol Use: Yes Hx Substance Use: No Allergies/Home Meds Allergies/Adverse Reactions: Allergies No Known Allergies Allergy (Verified 12/23/16 14:06) Home Medications: Home Meds Medication Instructions Recorded Confirmed No Known Home Med 11/15/16 12/24/16 Review of Systems - Physician Review All systems were reviewed & negative as marked: Yes - Review of Systems Constitutional: absent: Fevers Cardiovascular: absent: Chest Pain Psychiatric: Other (intoxicated) Physical Exam Vital Signs Reviewed: Yes Vital Signs Temp Pulse Resp BP Pulse Ox 12/24/16 12:17 97.2 F L 81 16 140/92 H 98 Temperature: Afebrile Blood Pressure: Hypertensive Pulse: Regular Respiratory Rate: Normal Appearance: Positive for: Well-Appearing, Non-Toxic, Comfortable Pain Distress: None Mental Status: Positive for: Alert and Oriented X 3 Finger Stick Blood Glucose: 79 - Systems Exam Head: Present: Atraumatic, Normocephalic Pupils: Present: PERRL Extroacular Muscles: Present: EOMI Conjunctiva: Present: Normal Mouth: Present: Moist Mucous Membranes, Other (alcohol on breath) Neck: Present: Normal Range of Motion Respiratory/Chest: Present: Clear to Auscultation, Good Air Exchange. No: Respiratory Distress, Accessory Muscle Use Cardiovascular: Present: Regular Rate and Rhythm, Normal S1, S2. No: Murmurs Abdomen: Present: Normal Bowel Sounds. No: Tenderness, Distention, Peritoneal Signs Back: Present: Normal Inspection Upper Extremity: Present: Normal Inspection. No: Cyanosis, Edema Lower Extremity: Present: Normal Inspection. No: Edema Neurological: Present: GCS=15, CN II-XII Intact, Speech Normal Skin: Present: Warm, Dry, Normal Color. No: Rashes Psychiatric: Present: Alert, Oriented x 3, Normal Insight, Normal Concentration , Intoxicated Medical Decision Making ED Course and Treatment: 12/24/16 11:47 Impression: A 31 year old male who is intoxicated. Differential Diagnosis include but are not limited to: alcohol abuse Plan: -- observation -- Reassess and disposition Prior Visits: Notes and results from previous visits were reviewed. The patient is well known to this emergency department staff. Patient present multiple times for alcohol intoxication and homelessness. 12/24/16 16:19 pt observed. awake alert, ambultory stable for d/c - Lab Interpretations Lab Results: Lab Results 12/24/16 12:18: POC Glucose (mg/dL) 79 I have reviewed the lab results: Yes ED OBSERVATION Date of observation admission: 12/24/16 Time of observation admission: 11:47 - Observation admission statement Patient is being placed in observation because:: alcohol intoxication - Goals of Observation Goals of observation are:: sobriety - Progress Note Progress Note: 12/24/16 13:02 On reevaluation, the patient is resting comfortable and in no acute distress. 12/24/16 15:02 Patient is sleeping with stable vitals. - Scribe Statement The provider has reviewed the documentation as recorded by the Radhaibmj Bermeo Provider Scribe Attestation: All medical record entries made by the Radhaibmj were at my direction and personally dictated by me. I have reviewed the chart and agree that the record accurately reflects my personal performance of the history, physical exam, medical decision making, and the department course for this patient. I have also personally directed, reviewed, and agree with the discharge instructions and disposition. Disposition/Present on Arrival - Present on Arrival Any Indicators Present on Arrival: No History of DVT/PE: No History of Uncontrolled Diabetes: No Urinary Catheter: No History of Decub. Ulcer: No History Surgical Site Infection Following: None - Disposition Have Diagnosis and Disposition been Completed?: Yes Diagnosis: Alcohol intoxication Disposition: HOME/ ROUTINE Disposition Time: 16:20 Condition: STABLE
[2016-12-24 16:45] VITALS: BP 132/80; PULSE 90
== END 2016-12-24 16:19 | disposition home or self-care (01) ==
LOC: ED 11:07 → EROBSV 12:28
PROVIDERS: ADMIT Student in an Organized Health Care Education/Training Program; ATTEND Student in an Organized Health Care Education/Training Program
DX: F10.129 Alcohol abuse with intoxication, unspecified (principal); Y90.9 Presence of alcohol in blood, level not specified
CPT/HCPCS: 82948; 99283; G0378

== ENCOUNTER 2016-12-24 22:48 | Observation (INO) | payer SELFPAY ==
--- NOTE | 2016-12-24 23:05 | ED PDOC ---
Arrival/HPI - General Historian: Patient - History of Present Illness Time/Duration: Other (chronic) Context: Street <Karmen Cardona - Last Filed: 12/24/16 23:16> <Alvin Bowman - Last Filed: 12/25/16 06:00> - General Time Seen by Provider: 12/24/16 23:05 - History of Present Illness Narrative History of Present Illness (Text): 12/24/16 23:05 This 31 yo male is brought to this ED by BLS for alcohol intoxication. (Karmen Cardona) Past Medical History - Provider Review Nursing Documentation Reviewed: Yes - Infectious Disease Hx of Infectious Diseases: None - Cardiac Hx Cardiac Disorders: No Hx Hypertension: No - Pulmonary Hx Respiratory Disorders: No Hx Tuberculosis: No - Neurological HX Cerebrovascular Accident: No Hx Seizures: No - HEENT Hx HEENT Disorder: No - Renal Hx Renal Disorder: No - Endocrine/Metabolic Hx Endocrine Disorders: No - Hematological/Oncological Hx Blood Disorders: No Hx Cancer: No - Integumentary Hx Dermatological Disorder: No - Musculoskeletal/Rheumatological Hx Musculoskeletal Disorders: No - Gastrointestinal Hx Gastrointestinal Disorders: No - Genitourinary/Gynecological Hx Genitourinary Disorders: No Hx Sexually Transmitted Diseases: No - Psychiatric Hx Psychophysiologic Disorder: No Hx Anxiety: No Hx Substance Use: No - Anesthesia Hx Anesthesia: No Hx Anesthesia Reactions: No Hx Malignant Hyperthermia: No <Karmen Cardona - Last Filed: 12/24/16 23:16> Family/Social History - Physician Review Nursing Documentation Reviewed: Yes Family/Social History: No Known Family HX Smoking Status: Heavy Smoker > 10 Cigarettes Daily Hx Alcohol Use: Yes Hx Substance Use: No <Karmen Cardona - Last Filed: 12/24/16 23:16> Allergies/Home Meds <Karmen Cardona - Last Filed: 12/24/16 23:16> <Alvin Bowman - Last Filed: 12/25/16 06:00> Allergies/Adverse Reactions: Allergies No Known Allergies Allergy (Verified 12/24/16 23:13) Home Medications: Home Meds Medication Instructions Recorded Confirmed No Known Home Med 11/15/16 12/24/16 Review of Systems - Review of Systems Systems not reviewed;Unavailable: Intoxicated <Karmen Cardona - Last Filed: 12/24/16 23:16> Physical Exam Temperature: Afebrile Blood Pressure: Normal Pulse: Regular Respiratory Rate: Normal Appearance: Positive for: Well-Appearing, Non-Toxic, Comfortable Pain Distress: None - Systems Exam Head: Present: Atraumatic, Normocephalic, Other (No raccoon sign. no hurtado sign). No: Ecchymosis, Abrasion Pupils: Present: PERRL, Other (no hyphema) Extroacular Muscles: Present: EOMI Conjunctiva: Present: Normal Ears: Present: Normal, NORMAL TM, Normal Canal, Other (No hemotympanum). No: Erythema, TM Bulging, Fluid, TM Perf Mouth: Present: Moist Mucous Membranes Pharnyx: Present: Normal. No: ERYTHEMA, EXUDATE, TONSILS ENLARGED Nose (External): Present: Atraumatic Nose (Internal): Present: Normal Inspection Neck: Present: Normal Range of Motion, Trachea Midline. No: Meningeal Signs, MIDLINE TENDERNESS, Paraspinal Tenderness, Lymphadenopathy Respiratory/Chest: Present: Clear to Auscultation, Good Air Exchange. No: Respiratory Distress, Accessory Muscle Use, Wheezes, Retracting, Rhonchi, Tachypneic, Tender to Palpation Cardiovascular: Present: Regular Rate and Rhythm, Normal S1, S2. No: Murmurs Abdomen: Present: Normal Bowel Sounds. No: Tenderness, Distention, Peritoneal Signs, Rebound, Guarding Back: Present: Normal Inspection. No: CVA Tenderness Upper Extremity: Present: Normal Inspection, Normal ROM, NORMAL PULSES, Neurovascularly Intact, Capillary Refill < 2s. No: Cyanosis, Edema Lower Extremity: Present: Normal Inspection, NORMAL PULSES, Normal ROM, Neurovascularly Intact, Capillary Refill < 2 s. No: Edema, CALF TENDERNESS Neurological: Present: GCS=15, CN II-XII Intact, Speech Normal, Motor Func Grossly Intact, Normal Sensory Function, Normal Cerebellar Funct, Gait Normal, Memory Normal Skin: Present: Warm, Dry, Normal Color, Other (healing abrasiion b/l feet. no cellulitis, abscess, drainage, or edema). No: Rashes Psychiatric: Present: Alert, Intoxicated <Karmen Cardona P - Last Filed: 12/24/16 23:16> Vital Signs Temp Pulse Resp BP Pulse Ox 12/25/16 04:46 97.7 F 98 H 17 113/70 99 12/24/16 23:12 97.6 F 85 17 117/60 96 Medical Decision Making Re-evaluation Time: 06:00 Reassessment Condition: Re-examined, Improved <Alvin Bowman - Last Filed: 12/25/16 06:00> ED OBSERVATION Date of observation admission: 12/24/16 Time of observation admission: 23:16 <Cardona,Nahim P - Last Filed: 12/24/16 23:16> Discharge: Yes <Alvin Bowman - Last Filed: 12/25/16 06:00> - Observation admission statement Patient is being placed in observation because:: Alcohol intoxication (Cardona,Nahim P) - Goals of Observation Goals of observation are:: Monitor and revaluation (Cardona,Nahim P) - Progress Note Progress Note: 12/25/16 02:00 Pt resting comfortably, no new complaints. 12/25/16 04:00 Pt sleeping currently, in no acute distress. 12/25/16 06:00 Pt resting comfortably, no new complaints. (Alvin Bowman) - PA / MANAGER PATIENT / Resident Statement MD/DO has reviewed & agrees with the documentation as recorded. /DO has examined the patient and agrees with the treatment plan. <Alvin Bowman - Last Filed: 12/25/16 06:00> Disposition/Present on Arrival - Present on Arrival History of DVT/PE: No History of Uncontrolled Diabetes: No Urinary Catheter: No History Surgical Site Infection Following: None <CardonaNahim P - Last Filed: 12/24/16 23:16> - Present on Arrival Any Indicators Present on Arrival: No - Disposition Have Diagnosis and Disposition been Completed?: Yes Disposition Time: 06:00 <Alvin Bowman - Last Filed: 12/25/16 06:00> - Disposition Diagnosis: Alcohol intoxication Disposition: HOME/ ROUTINE Condition: GOOD
[2016-12-24 23:11] VITALS: BMI 25.0
[2016-12-24 23:13] VITALS: RESP 17
[2016-12-25 04:47] VITALS: BP 113/70; PULSE 98; TEMP 97.7; O2SAT 99
== END 2016-12-25 06:00 | disposition home or self-care (01) ==
LOC: ED 22:48 → EROBSV 23:14
PROVIDERS: ADMIT Emergency Medicine; ATTEND Emergency Medicine
DX: F10.129 Alcohol abuse with intoxication, unspecified (principal); Y90.9 Presence of alcohol in blood, level not specified
CPT/HCPCS: 99282; G0378

== ENCOUNTER 2016-12-30 20:43 | Observation (INO) | payer SELFPAY ==
[2016-12-30 21:04] VITALS: BMI 25.8
[2016-12-30 21:07] VITALS: RESP 16; O2SAT 98
--- NOTE | 2016-12-30 22:51 | ED PDOC ---
Arrival/HPI - General Chief Complaint: Alcohol Ingestion Time Seen by Provider: 12/30/16 20:45 Historian: Patient - History of Present Illness Narrative History of Present Illness (Text): 12/30/16 22:48 Wili Aguilar is a 31 year old male, with a history of alcohol abuse, presents to the emergency department complaining via EMS for public intoxication. Admits to drinking alcohol earlier today. Patient presented numerous times in the past for alcohol intoxication and is well known to ed staff. Patient denies any suicidal or homicidal ideation. Denies any somatic complaints. Time/Duration: 1-3 hours Symptom Onset: Gradual Severity Level: Mild Activities at Onset: Light Context: Street Past Medical History - Provider Review Nursing Documentation Reviewed: Yes - Infectious Disease Hx of Infectious Diseases: None - Cardiac Hx Cardiac Disorders: No Hx Hypertension: No - Pulmonary Hx Respiratory Disorders: No Hx Tuberculosis: No - Neurological HX Cerebrovascular Accident: No Hx Seizures: No - HEENT Hx HEENT Disorder: No - Renal Hx Renal Disorder: No - Endocrine/Metabolic Hx Endocrine Disorders: No - Hematological/Oncological Hx Blood Disorders: No Hx Cancer: No - Integumentary Hx Dermatological Disorder: No - Musculoskeletal/Rheumatological Hx Musculoskeletal Disorders: No - Gastrointestinal Hx Gastrointestinal Disorders: No - Genitourinary/Gynecological Hx Genitourinary Disorders: No Hx Sexually Transmitted Diseases: No - Psychiatric Hx Psychophysiologic Disorder: No Hx Anxiety: No Hx Substance Use: No - Anesthesia Hx Anesthesia: No Hx Anesthesia Reactions: No Hx Malignant Hyperthermia: No Family/Social History - Physician Review Nursing Documentation Reviewed: Yes Family/Social History: No Known Family HX Smoking Status: Heavy Smoker > 10 Cigarettes Daily Hx Alcohol Use: Yes Frequency of alcohol use: Daily Hx Substance Use: No Allergies/Home Meds Allergies/Adverse Reactions: Allergies No Known Allergies Allergy (Verified 12/30/16 21:03) Home Medications: Home Meds Medication Instructions Recorded Confirmed No Known Home Med 11/15/16 12/30/16 Review of Systems - Review of Systems Systems not reviewed;Unavailable: Intoxicated Physical Exam Vital Signs Reviewed: Yes Vital Signs Temp Pulse Resp BP Pulse Ox 12/31/16 01:28 98.1 F 86 16 108/68 98 12/30/16 21:06 97.9 F 91 H 16 137/89 98 Temperature: Afebrile Blood Pressure: Normal Pulse: Regular Respiratory Rate: Normal Appearance: Positive for: Well-Appearing Pain Distress: None Mental Status: Positive for: Alert and Oriented X 3 - Systems Exam Head: Present: Atraumatic, Normocephalic Pupils: Present: PERRL Extroacular Muscles: Present: EOMI Conjunctiva: Present: Normal Respiratory/Chest: Present: Clear to Auscultation, Good Air Exchange. No: Respiratory Distress, Accessory Muscle Use Cardiovascular: Present: Regular Rate and Rhythm, Normal S1, S2. No: Murmurs Abdomen: Present: Normal Bowel Sounds. No: Tenderness, Distention, Peritoneal Signs Upper Extremity: Present: Normal Inspection. No: Cyanosis, Edema Lower Extremity: Present: Normal Inspection. No: Edema Neurological: Present: GCS=15, CN II-XII Intact, Speech Normal Skin: Present: Warm, Dry, Normal Color. No: Rashes Psychiatric: Present: Alert, Oriented x 3, Intoxicated Medical Decision Making ED Course and Treatment: 12/30/16 22:59 Impression: A 31 year old male who presents to the emergency department via EMS for public intoxication. Progress Notes: 12/30/16 22:[address] patient on ED OBS for alcohol intoxication. ED OBSERVATION Discharge: Yes Date of observation admission: 12/30/16 Time of observation admission: 22:10 - Observation admission statement Patient is being placed in observation because:: Alcohol intoxication - Goals of Observation Goals of observation are:: Awaiting Sobriety. - Progress Note Progress Note: 12/31/16 00:10 Patient resting comfortably without any new complaints. Stable vitals. 12/31/16 02:10 Patient sleeping without any distress. Stable vitals. 12/31/16 04:10 Patient is resting comfortably without any distress. No new complaints. Stable vital signs. - Scribe Statement The provider has reviewed the documentation as recorded by the Cipriano Brownlee Provider Attestation: All medical record entries made by the Cipriano were at my direction and personally dictated by me. I have reviewed the chart and agree that the record accurately reflects my personal performance of the history, physical exam, medical decision making, and the department course for this patient. I have also personally directed, reviewed, and agree with the discharge instructions and disposition. Disposition/Present on Arrival - Present on Arrival Any Indicators Present on Arrival: No History of DVT/PE: No History of Uncontrolled Diabetes: No Urinary Catheter: No History of Decub. Ulcer: No History Surgical Site Infection Following: None - Disposition Have Diagnosis and Disposition been Completed?: Yes Diagnosis: Alcohol intoxication Disposition: HOME/ ROUTINE Disposition Time: 06:19 Condition: GOOD
[2016-12-31 01:28] VITALS: BP 108/68; PULSE 86; TEMP 98.1
== END 2016-12-31 06:19 | disposition home or self-care (01) ==
LOC: ED 20:43 → EROBSV 22:12
PROVIDERS: ADMIT Emergency Medicine; ATTEND Emergency Medicine
DX: F10.129 Alcohol abuse with intoxication, unspecified (principal)
CPT/HCPCS: 99282; G0378

== ENCOUNTER 2016-12-31 19:24 | Observation (INO) | payer SELFPAY ==
[2016-12-31 19:25] VITALS: BMI 25.0
--- NOTE | 2016-12-31 19:50 | ED PDOC ---
Arrival/HPI - General Chief Complaint: Alcohol Ingestion Time Seen by Provider: 12/31/16 19:25 Historian: Patient, EMS - History of Present Illness Narrative History of Present Illness (Text): 12/31/16 19:48 31 year old male with multiple Emergency department visits for alcohol abuse brought to the emergency department by EMS for alcohol intoxication. Patient admits to drinking today. Denies any complaints at this time. Time/Duration: 24 hours Symptom Onset: Gradual Symptom Course: Unchanged Modifying Factors (Text): None Associated Symptoms (Text): None Past Medical History - Provider Review Nursing Documentation Reviewed: Yes - Infectious Disease Hx of Infectious Diseases: None - Cardiac Hx Cardiac Disorders: No Hx Hypertension: No - Pulmonary Hx Respiratory Disorders: No Hx Tuberculosis: No - Neurological HX Cerebrovascular Accident: No Hx Seizures: No - HEENT Hx HEENT Disorder: No - Renal Hx Renal Disorder: No - Endocrine/Metabolic Hx Endocrine Disorders: No - Hematological/Oncological Hx Blood Disorders: No Hx Cancer: No - Integumentary Hx Dermatological Disorder: No - Musculoskeletal/Rheumatological Hx Musculoskeletal Disorders: No - Gastrointestinal Hx Gastrointestinal Disorders: No - Genitourinary/Gynecological Hx Genitourinary Disorders: No Hx Sexually Transmitted Diseases: No - Psychiatric Hx Psychophysiologic Disorder: No Hx Anxiety: No Hx Substance Use: No - Anesthesia Hx Anesthesia: No Hx Anesthesia Reactions: No Hx Malignant Hyperthermia: No Family/Social History - Physician Review Nursing Documentation Reviewed: Yes Family/Social History: Unknown Family HX Smoking Status: Heavy Smoker > 10 Cigarettes Daily Hx Alcohol Use: Yes Hx Substance Use: No Allergies/Home Meds Allergies/Adverse Reactions: Allergies No Known Allergies Allergy (Verified 12/31/16 19:34) Home Medications: Home Meds Medication Instructions Recorded Confirmed No Known Home Med 11/15/16 12/31/16 Review of Systems - Review of Systems Systems not reviewed;Unavailable: Intoxicated Physical Exam Vital Signs Reviewed: Yes Vital Signs Temp Pulse Resp BP Pulse Ox 01/01/17 06:11 98.0 F 88 16 125/78 98 01/01/17 06:09 98.0 F 88 16 125/78 98 01/01/17 03:10 97.8 F 88 18 129/80 99 12/31/16 19:53 98.2 F 82 18 146/73 100 Temperature: Afebrile Blood Pressure: Normal Pulse: Regular Respiratory Rate: Normal Appearance: Positive for: Well-Appearing, Non-Toxic, Comfortable Pain Distress: None Mental Status: Positive for: other (Awake, alert) - Systems Exam Head: Present: Atraumatic, Normocephalic Pupils: Present: PERRL Extroacular Muscles: Present: EOMI Conjunctiva: Present: Normal Mouth: Present: Moist Mucous Membranes Neck: Present: Normal Range of Motion Respiratory/Chest: Present: Clear to Auscultation, Good Air Exchange. No: Respiratory Distress, Accessory Muscle Use Cardiovascular: Present: Regular Rate and Rhythm, Normal S1, S2. No: Murmurs Abdomen: Present: Normal Bowel Sounds. No: Tenderness, Distention, Peritoneal Signs Back: Present: Normal Inspection Upper Extremity: Present: Normal Inspection. No: Cyanosis, Edema Lower Extremity: Present: Normal Inspection. No: Edema Neurological: Present: GCS=15, CN II-XII Intact Skin: Present: Warm, Dry, Normal Color. No: Rashes Psychiatric: Present: Alert, Normal Concentration Medical Decision Making ED Course and Treatment: Impression: 31 year old male BIBA for ETOH. Plan: -- OBS, pending sobriety -- Reassess and disposition Prior Visits: Notes and results from previous visits were reviewed. Patient last seen in ED on Progress Notes: ED OBSERVATION Date of observation admission: 12/31/16 Time of observation admission: 19:46 - Observation admission statement Patient is being placed in observation because:: alcohol intoxication - Goals of Observation Goals of observation are:: pending sobriety - Progress Note Progress Note: 12/31/16 19:47 On initial examination, patient in no acute distress. 12/31/16 21:47 Patient is in no acute distress. 01/01/17 03:03 Patient is sleeping comfortably. Patient is in no acute distress. 01/01/17 05:49 Patient is in no acute distress. - Scribe Statement The provider has reviewed the documentation as recorded by the Cipriano Banks Provider Scribe Attestation: All medical record entries made by the Cipriano were at my direction and personally dictated by me. I have reviewed the chart and agree that the record accurately reflects my personal performance of the history, physical exam, medical decision making, and the department course for this patient. I have also personally directed, reviewed, and agree with the discharge instructions and disposition. Disposition/Present on Arrival - Present on Arrival Any Indicators Present on Arrival: No History of DVT/PE: No History of Uncontrolled Diabetes: No Urinary Catheter: No History of Decub. Ulcer: No History Surgical Site Infection Following: None - Disposition Have Diagnosis and Disposition been Completed?: Yes Diagnosis: Alcohol intoxication Disposition: HOME/ ROUTINE Disposition Time: 19:46 Condition: STABLE
[2017-01-01 03:10] VITALS: PULSE 88
[2017-01-01 06:11] VITALS: BP 125/78; RESP 16; TEMP 98; O2SAT 98
== END 2017-01-01 05:27 | disposition home or self-care (01) ==
LOC: ED 19:24 → EROBSV 19:46
PROVIDERS: ADMIT Student in an Organized Health Care Education/Training Program; ATTEND Student in an Organized Health Care Education/Training Program
DX: F10.129 Alcohol abuse with intoxication, unspecified (principal)
CPT/HCPCS: 99283; G0378

== ENCOUNTER 2017-01-01 16:46 | Emergency (ER) | payer SELFPAY ==
[2017-01-01 16:46] VITALS: BMI 25.0
[2017-01-01 16:59] VITALS: BP 133/85; PULSE 100; RESP 17; TEMP 98.1; O2SAT 96
--- NOTE | 2017-01-01 17:23 | ED PDOC ---
Arrival/HPI - General Chief Complaint: Alcohol Ingestion Time Seen by Provider: 01/01/17 17:00 Historian: Patient - History of Present Illness Narrative History of Present Illness (Text): 01/01/17 17:19 Wili Aguilar is a 31 year old male, whose past medical history includes alcohol intoxication, who presents to the emergency department complaining of hunger today. Patient states that he came to emergency department because he is hungry and wants food. Patient endorses that he drank alcohol yesterday but states that he is fine. Patient denies having hallucinations or any other complaint at this time. Time/Duration: Prior to Arrival Symptom Course: Unchanged Severity Level: Mild Activities at Onset: Rest Modifying Factors (Text): None Context: Street Associated Symptoms (Text): None Past Medical History - Provider Review Nursing Documentation Reviewed: Yes - Infectious Disease Hx of Infectious Diseases: None - Cardiac Hx Cardiac Disorders: No Hx Hypertension: No - Pulmonary Hx Respiratory Disorders: No Hx Tuberculosis: No - Neurological HX Cerebrovascular Accident: No Hx Seizures: No - HEENT Hx HEENT Disorder: No - Renal Hx Renal Disorder: No - Endocrine/Metabolic Hx Endocrine Disorders: No - Hematological/Oncological Hx Blood Disorders: No Hx Cancer: No - Integumentary Hx Dermatological Disorder: No - Musculoskeletal/Rheumatological Hx Musculoskeletal Disorders: No - Gastrointestinal Hx Gastrointestinal Disorders: No - Genitourinary/Gynecological Hx Genitourinary Disorders: No Hx Sexually Transmitted Diseases: No - Psychiatric Hx Psychophysiologic Disorder: No Hx Anxiety: No Hx Substance Use: No - Anesthesia Hx Anesthesia: No Hx Anesthesia Reactions: No Hx Malignant Hyperthermia: No Family/Social History - Physician Review Nursing Documentation Reviewed: Yes Family/Social History: No Known Family HX Smoking Status: Heavy Smoker > 10 Cigarettes Daily Hx Alcohol Use: Yes Hx Substance Use: No Allergies/Home Meds Allergies/Adverse Reactions: Allergies No Known Allergies Allergy (Verified 01/01/17 16:49) Home Medications: Home Meds Medication Instructions Recorded Confirmed Unobtainable 01/01/17 01/01/17 Review of Systems - Review of Systems Constitutional: Other (Hunger). absent: Fevers, Night Sweats Eyes: absent: Vision Changes ENT: absent: Hearing Changes Respiratory: absent: SOB Cardiovascular: absent: Chest Pain Gastrointestinal: absent: Abdominal Pain Genitourinary Male: absent: Urinary Output Changes Musculoskeletal: absent: Back Pain Skin: absent: Rash Neurological: absent: Headache Endocrine: absent: Diaphoresis Hemo/Lymphatic: absent: Easy Bleeding Psychiatric: absent: Depression Physical Exam Vital Signs Reviewed: Yes Vital Signs Temp Pulse Resp BP Pulse Ox 01/01/17 16:50 98.1 F 100 H 17 133/85 96 Temperature: Afebrile Blood Pressure: Normal Pulse: Tachycardic Respiratory Rate: Normal Appearance: Positive for: Other (Poor Hygiene) Pain Distress: None Mental Status: Positive for: Alert and Oriented X 3 - Systems Exam Head: Present: Atraumatic, Normocephalic Pupils: Present: PERRL Extroacular Muscles: Present: EOMI Conjunctiva: Present: Normal Mouth: Present: Moist Mucous Membranes Neck: Present: Normal Range of Motion Respiratory/Chest: Present: Clear to Auscultation, Good Air Exchange. No: Respiratory Distress, Accessory Muscle Use Cardiovascular: Present: Regular Rate and Rhythm, Normal S1, S2. No: Murmurs Abdomen: Present: Normal Bowel Sounds. No: Tenderness, Distention, Peritoneal Signs Back: Present: Normal Inspection Upper Extremity: Present: Normal Inspection. No: Cyanosis, Edema Lower Extremity: Present: Normal Inspection. No: Edema Neurological: Present: GCS=15, CN II-XII Intact, Speech Normal Skin: Present: Warm, Dry, Normal Color. No: Rashes Psychiatric: Present: Alert, Oriented x 3, Normal Insight, Normal Concentration Medical Decision Making ED Course and Treatment: 01/01/17 17:24 Impression: 31 year old male complaining of hunger today. Differential Diagnosis included but are not limited to: Alcohol Use, Homeless, Hungry Plan: -- Fingerstick -- Food provides to patient -- Reassess and disposition Prior Visits: Notes and results from previous visits were reviewed. Patient last seen in the ED on 12/31/16 for alcohol intoxication. Patient was discharged. Progress Notes: 01/01/17 17:27 Patient is not clinically intoxicated. He is AAOx3 and has no slurred speech. No ataxia. Patient will be discharged, list of homeless shelters given. - Scribe Statement The provider has reviewed the documentation as recorded by the Cipriano Rosenbaum Provider Scribe Attestation: All medical record entries made by the Scribmj were at my direction and personally dictated by me. I have reviewed the chart and agree that the record accurately reflects my personal performance of the history, physical exam, medical decision making, and the department course for this patient. I have also personally directed, reviewed, and agree with the discharge instructions and disposition. Disposition/Present on Arrival - Present on Arrival Any Indicators Present on Arrival: No History of DVT/PE: No History of Uncontrolled Diabetes: No Urinary Catheter: No History of Decub. Ulcer: No History Surgical Site Infection Following: None - Disposition Have Diagnosis and Disposition been Completed?: Yes Diagnosis: Alcohol use Disposition: HOME/ ROUTINE Disposition Time: 17:28 Patient Plan: Discharge Patient Problems: Current Active Problems Problem Status Diagnosed Alcohol use Acute Condition: GOOD Discharge Instructions (ExitCare): Abuse of Alcohol (ED) Additional Instructions: Ms Aguilar, thank you for letting us take care of you today. Your provider was Dr. Mendoza. You were treated for Alcohol Use. The emergency medical care you received today was directed at your acute symptoms. If you were prescribed any medication, please fill it and take as directed. It may take several days for your symptoms to resolve. Return to the Emergency Department if your symptoms worsen, do not improve, or if you have any other problems. Please contact your doctor or call one of the physicians/clinics you have been referred to that are listed on the Patient Visit Information form that is included in your discharge packet. Bring any paperwork you were given at discharge with you along with any medications you are taking to your follow up visit. Our treatment cannot replace ongoing medical care by a primary care provider (PCP) outside of the emergency department. Thank you for allowing the [facility] team to be part of your care today. If you had an X-Ray or CT scan: A Radiologist will review the ED reading if any change in treatment is needed we will contact you. If you had a blood, urine, or wound culture: It will take several days for the results, if any change in treatment is needed we will contact you. If you had an STI test: It will take 48 hours for the results. Please call after 1 week if you have not heard back. Referrals: [facility] at [facility] [place] [Outside] - Follow up with primary
== END 2017-01-01 18:20 | disposition home or self-care (01) ==
LOC: ED 16:46
DX: Z72.89 Other problems related to lifestyle (principal)

== ENCOUNTER 2017-01-01 20:31 | Emergency (ER) | payer SELFPAY ==
[2017-01-01 20:41] VITALS: BMI 24.3
[2017-01-01 20:50] VITALS: BP 121/80; PULSE 85; RESP 16; TEMP 98; O2SAT 99
--- NOTE | 2017-01-01 20:59 | ED PDOC ---
Arrival/HPI - General Time Seen by Provider: 01/01/17 20:34 Historian: Patient - History of Present Illness Narrative History of Present Illness (Text): 01/01/17 20:56 31 y/o male, frequent visitor to this ER, judith because he was found on the street. Pt. stated that he is hungry, admits drinking earlier, no fever or chills, no night sweat, no numbness or tingling, no fall or trauma, no urinary symptoms, no other medical or psychological complaints. Past Medical History - Provider Review Nursing Documentation Reviewed: Yes - Infectious Disease Hx of Infectious Diseases: None - Cardiac Hx Cardiac Disorders: No Hx Hypertension: No - Pulmonary Hx Respiratory Disorders: No Hx Tuberculosis: No - Neurological HX Cerebrovascular Accident: No Hx Seizures: No - HEENT Hx HEENT Disorder: No - Renal Hx Renal Disorder: No - Endocrine/Metabolic Hx Endocrine Disorders: No - Hematological/Oncological Hx Blood Disorders: No Hx Cancer: No - Integumentary Hx Dermatological Disorder: No - Musculoskeletal/Rheumatological Hx Musculoskeletal Disorders: No - Gastrointestinal Hx Gastrointestinal Disorders: No - Genitourinary/Gynecological Hx Genitourinary Disorders: No Hx Sexually Transmitted Diseases: No - Psychiatric Hx Psychophysiologic Disorder: No Hx Anxiety: No Hx Substance Use: No - Anesthesia Hx Anesthesia: No Hx Anesthesia Reactions: No Hx Malignant Hyperthermia: No Family/Social History - Physician Review Nursing Documentation Reviewed: Yes Family/Social History: Unknown Family HX Smoking Status: Heavy Smoker > 10 Cigarettes Daily Hx Alcohol Use: Yes Hx Substance Use: No Allergies/Home Meds Allergies/Adverse Reactions: Allergies No Known Allergies Allergy (Verified 01/01/17 16:49) Home Medications: Home Meds Medication Instructions Recorded Confirmed Unobtainable 01/01/17 01/01/17 Review of Systems - Review of Systems Constitutional: absent: Fatigue, Fevers Eyes: absent: Vision Changes ENT: absent: Hearing Changes Respiratory: absent: SOB, Cough, Sputum Cardiovascular: absent: Chest Pain Gastrointestinal: absent: Abdominal Pain, Nausea, Vomiting Musculoskeletal: absent: Arthralgias, Back Pain, Neck Pain, Joint Swelling, Myalgias Neurological: absent: Headache, Dizziness, Focal Weakness, Gait Changes, Speech Changes, Facial Droop, Disequilibrium, Seizure Physical Exam Vital Signs Reviewed: Yes Vital Signs Temp Pulse Resp BP Pulse Ox 01/01/17 20:35 98 F 85 16 121/80 99 Temperature: Afebrile Blood Pressure: Normal Pulse: Regular Respiratory Rate: Normal Appearance: Positive for: Well-Appearing, Non-Toxic, Comfortable Pain Distress: None Mental Status: Positive for: Alert and Oriented X 3 Finger Stick Blood Glucose: 109 - Systems Exam Head: Present: Atraumatic, Normocephalic Pupils: Present: PERRL Extroacular Muscles: Present: EOMI Conjunctiva: Present: Normal Mouth: Present: Moist Mucous Membranes Neck: Present: Normal Range of Motion, Trachea Midline. No: Meningeal Signs, MIDLINE TENDERNESS, Paraspinal Tenderness, Lymphadenopathy Respiratory/Chest: Present: Clear to Auscultation, Good Air Exchange. No: Respiratory Distress, Accessory Muscle Use Cardiovascular: Present: Regular Rate and Rhythm, Normal S1, S2. No: Murmurs Abdomen: Present: Normal Bowel Sounds. No: Tenderness, Distention, Peritoneal Signs Back: Present: Normal Inspection. No: CVA Tenderness, Midline Tenderness, Paraspinal Tenderness, Pain with Leg Raise, Decubitus Ulcer Upper Extremity: Present: Normal Inspection. No: Cyanosis, Edema Lower Extremity: Present: Normal Inspection. No: Edema Neurological: Present: GCS=15, CN II-XII Intact, Speech Normal Skin: Present: Warm, Dry, Normal Color. No: Rashes Psychiatric: Present: Alert, Oriented x 3, Normal Insight, Normal Concentration Medical Decision Making ED Course and Treatment: 01/01/17 20:58 -Food and drinks given. -FS 109 -Pt. walking with normal gait and posture, not intoxicated. -Discharge home with education on stay hydrated, bed rest, follow up with your own pmd within 2 days, return to the ER for any new or worsening signs or symptoms. - PA / CYTOPATHOLOGY TECHNOLOGIST / Resident Statement MD/DO has reviewed & agrees with the documentation as recorded. Disposition/Present on Arrival - Present on Arrival Any Indicators Present on Arrival: No History of DVT/PE: No History of Uncontrolled Diabetes: No Urinary Catheter: No History of Decub. Ulcer: No History Surgical Site Infection Following: None - Disposition Have Diagnosis and Disposition been Completed?: Yes Diagnosis: General medical examination Disposition: HOME/ ROUTINE Disposition Time: 20:59 Patient Plan: Discharge Condition: GOOD Additional Instructions: Discharge home with education on stay hydrated, bed rest, follow up with your own pmd within 2 days, return to the ER for any new or worsening signs or symptoms. Referrals: [facility] at [facility] [place] [Outside] - Follow up with primary Forms: WORK NOTE
== END 2017-01-01 21:18 | disposition home or self-care (01) ==
LOC: ED 20:31
DX: Z00.00 Encounter for general adult medical examination without abnormal findings (principal)